=== PATIENT | female | born 1970 | race Two or more races ===

== ENCOUNTER 2025-07-05 06:00 | Day surgery (SDC) | payer OTHER ==
[2025-07-02 12:06] VITALS: BP 128/84
[~2025-07-05] VITALS: Ht 157.5 cm; Wt 83.9 kg
[~2025-07-05 06:00] MED LIST: HYDRODIURIL12.5 MG PO; VALIUM; ZESTRIL20 MG PO
[2025-07-05] MEDS ORDERED: ONDANSETRON HCL 2 MG/ML VIAL IV PRN (08:15)
[2025-07-05] MEDS ORDERED: POVIDONE-IODINE SCRUB 118 ML BOTT TOP ONE ×2 (08:45)
[2025-07-05] MEDS ORDERED: CEFAZOLIN SODIUM 1,000 MG VIAL IJ ONE (08:45)
[2025-07-05] MEDS ORDERED: CLINDAMYCIN PHOSPHATE 150 MG/ML (900mg) IV ONE (08:45)
[2025-07-05] MEDS ORDERED: POVIDONE-IODINE 118 ML BOTT TOP ONE ×3 (08:45)
[2025-07-05] MEDS ORDERED: TRANEXAMIC ACID 100MG/1ML (1000MG) AMPUL IV ONE (08:45)
[2025-07-05] MEDS ORDERED: EPINEPHRINE HCL/PF 1 MG/ML AMPUL IJ ONE (08:45)
[2025-07-05] MEDS ORDERED: GENTAMICIN SULFATE 40 MG/ML VIAL IR ONE (08:45)
[2025-07-05] MEDS ORDERED: TRANEXAMIC ACID 100MG/1ML (1000MG) AMPUL IV SCH (08:45)
[2025-07-05] MEDS ORDERED: BUPIVACAINE HCL 30 ML VIAL IJ ONE (08:45)
[2025-07-05] MEDS ORDERED: NITROGLYCERIN 1 INCH OINT..GM. TD ONE (09:30)
[2025-07-05] MEDS ORDERED: SUGAMMADEX SODIUM 200 MG/2 ML VIAL IV ONE (11:15)
== END 2025-07-05 14:00 | disposition home or self-care (01) ==
LOC: CIR.AMB 06:00
PROVIDERS: ATTEND Plastic Surgery
DX: N64.81 Ptosis of breast (principal); N64.89 Other specified disorders of breast